=== PATIENT | female | born 1995 | race Two or more races ===

== ENCOUNTER 2018-11-27 06:26 | Inpatient (IN) ==
[~2018-11-27 06:26] MED LIST: ANCEF 1 GRAM IV PREMIX* 1 G/50 ML BAG IV ONE; LR 1000 ML IV 1,000 ML ONE
[2018-11-27] MEDS ORDERED: D5 1/2 NS 1000 ML 1,000 ML IV SCH (06:46)
[2018-11-27] MEDS ORDERED: ANCEF VIAL 1 GRAM IVP ONE (06:46)
[2018-11-27] MEDS ORDERED: LR 1000 ML IV 1,000 ML ONE ×2 (07:01→08:18)
[2018-11-27] MEDS ORDERED: D5 1/2 NS 1L W PITOCIN 20 UNITS/L 20 UNITS/1,000 ML BAG IV ONE (07:01)
[2018-11-27] MEDS ORDERED: DILAUDID INJ ONE (07:01)
[2018-11-27] MEDS ORDERED: XYLOCAINE 1 % (PLAIN) ONE (07:04)
[2018-11-27] MEDS ORDERED: BENADRYL INJ 50 MG VIAL IVP PRN (08:46)
[2018-11-27] MEDS ORDERED: PHENERGAN INJ 25 MG IM PRN (08:46)
[2018-11-27] MEDS ORDERED: REGLAN INJ 10 MG VIAL IVP PRN ×2 (08:46→08:56)
[2018-11-27] MEDS ORDERED: ZOFRAN INJ 4 MG VIAL IVP PRN ×2 (08:46→08:56)
[2018-11-27] MEDS ORDERED: ADACEL or BOOSTRIX TDaP VACCINE IM ONE (08:56)
[2018-11-27] MEDS ORDERED: NARCAN INJ IVP PRN (08:56)
[2018-11-27] MEDS ORDERED: TORADOL 30 MG VIAL IVP PRN (08:56)
[2018-11-27] MEDS ORDERED: PERCOCET TAB 5/325 MG PO PRN (08:56)
[2018-11-27] MEDS ORDERED: MYLICON TAB 80 MG CHEW PO PRN (08:56)
[2018-11-27] MEDS ORDERED: D5 1/2 NS 1000 ML 1,000 ML with PITOCIN 20 UNITS IV SCH ×2 (09:00)
[2018-11-27] MEDS ORDERED: REGLAN INJ 10 MG VIAL ONE ×2 (10:38→14:09)
[2018-11-27] MEDS ORDERED: EPHEDRINE SULFATE INJ ONE (14:09)
[2018-11-27] MEDS ORDERED: ZOFRAN INJ 4 MG VIAL ONE (14:09)
[2018-11-27] MEDS ORDERED: PITOCIN ONE (14:09)
[2018-11-27] MEDS ORDERED: NEO-SYNEPHRINE INJ ONE (14:09)
[2018-11-27] MEDS ORDERED: MARCAINE SPINAL ONE (14:09)
[2018-11-27] MEDS ORDERED: DIPRIVAN VIAL ONE (14:09)
[2018-11-27] MEDS: PRENATAL PLUS PO SCH (18:07)
[2018-11-27] MEDS: ZANTAC PO SCH ×2 (18:07→21:01)
[2018-11-27] MEDS: BENADRYL INJ 50 MG VIAL IVP PRN (21:02)
[2018-11-28 05:24] LABS: HEMOGLOBIN 7.1 g/dL (12.0-16.0)
[2018-11-28] MEDS ORDERED: PERCOCET TAB 5/325 MG PO PRN (07:55)
[2018-11-28] MEDS ORDERED: ADACEL or BOOSTRIX TDaP VACCINE IM ONE (09:06)
[2018-11-28] MEDS: MOTRIN TAB 800 MG PO PRN ×2 (09:17→21:02)
[2018-11-28] MEDS: BENADRYL INJ 50 MG VIAL IVP PRN (09:18)
[2018-11-28] MEDS: PRENATAL PLUS PO SCH (09:18)
[2018-11-28] MEDS: COLACE CAP 100 MG PO SCH ×2 (09:18→21:03)
[2018-11-28] MEDS: ZANTAC PO SCH ×2 (09:30→21:03)
[2018-11-28] MEDS: BACTROBAN CREAM TOP SCH ×2 (16:12→21:05)
[2018-11-28] MEDS ORDERED: FERROUS GLUCONATE PO SCH (17:00)
[2018-11-29] MEDS: BACTROBAN CREAM TOP SCH (05:55)
[2018-11-29 08:54] VITALS: BP 127/72
[2018-11-29] MEDS: PRENATAL PLUS PO SCH (09:15)
[2018-11-29] MEDS: COLACE CAP 100 MG PO SCH (09:15)
[2018-11-29] MEDS: ZANTAC PO SCH (09:16)
[2018-11-29] MEDS: MOTRIN TAB 800 MG PO PRN (09:17)
== END 2018-11-29 11:45 | disposition home or self-care (01) | DRG 788 ==
LOC: LD 06:26 → MED/SURG 12:56
PROVIDERS: ADMIT Specialist; ATTEND Specialist
DX: N85.8 Other specified noninflammatory disorders of uterus; O26.893 Other specified pregnancy related conditions, third trimester; Z37.0 Single live birth; Z3A.38 38 weeks gestation of pregnancy; O99.013 Anemia complicating pregnancy, third trimester; G43.809 Other migraine, not intractable, without status migrainosus; O41.03X0 Oligohydramnios, third trimester, not applicable or unspecified; O34.211 Maternal care for low transverse scar from previous cesarean delivery; Z23 Encounter for immunization; D50.8 Other iron deficiency anemias
CPT/HCPCS: 36415; 85014; 85018; 90715; A4216; A4222; S0197; J0690; J1170; J1200; J1885; J2310; J2370; J2405; J2590; J2704; J2765; J3490; J7120

== ENCOUNTER 2020-01-20 06:18 | Inpatient (IN) ==
[2020-01-20] MEDS ORDERED: LR 1000 ML IV 1,000 ML IV ONE (06:22)
[2020-01-20] MEDS ORDERED: ANCEF 1 GRAM IV PREMIX* 1 G/50 ML BAG IV ONE (06:22)
[2020-01-20] MEDS ORDERED: ANCEF VIAL 1 GRAM IVP ONE (06:32)
[2020-01-20] MEDS ORDERED: D5 1/2 NS 1000 ML 1,000 ML IV SCH (06:32)
[2020-01-20] MEDS ORDERED: DILAUDID INJ ONE (07:14)
[2020-01-20] MEDS ORDERED: D5 1/2 NS 1L W PITOCIN 20 UNITS/L 20 UNITS/1,000 ML BAG IV ONE (08:14)
[2020-01-20] MEDS ORDERED: BENADRYL INJ 50 MG VIAL IVP PRN (08:56)
[2020-01-20] MEDS ORDERED: REGLAN INJ 10 MG VIAL IVP PRN ×2 (08:56→09:19)
[2020-01-20] MEDS ORDERED: PHENERGAN INJ 25 MG IM PRN (08:56)
[2020-01-20] MEDS ORDERED: ZOFRAN INJ 4 MG VIAL IVP PRN ×2 (08:56→09:19)
[2020-01-20] MEDS ORDERED: DILAUDID INJ IVP PRN (08:56)
[2020-01-20] MEDS ORDERED: NARCAN INJ ONE (08:57)
[2020-01-20] MEDS: NARCAN INJ IVP PRN ×2 (09:04→21:05)
[2020-01-20] MEDS ORDERED: ADACEL or BOOSTRIX TDaP VACCINE IM ONE (09:19)
[2020-01-20] MEDS ORDERED: PERCOCET TAB 5/325 MG PO PRN (09:19)
[2020-01-20] MEDS ORDERED: D5 1/2 NS 1000 ML 1,000 ML with PITOCIN 20 UNITS IV SCH ×2 (09:19)
[2020-01-20] MEDS ORDERED: ZOFRAN INJ 4 MG VIAL ONE (10:00)
[2020-01-20] MEDS: BENADRYL INJ 50 MG VIAL IVP PRN ×2 (10:41→15:15)
[2020-01-20] MEDS: PRENATAL PLUS PO SCH (10:41)
[2020-01-20] MEDS ORDERED: PITOCIN ONE (14:40)
[2020-01-20] MEDS ORDERED: EPHEDRINE SULFATE INJ ONE (14:40)
[2020-01-20] MEDS ORDERED: VERSED ONE (14:40)
[2020-01-20] MEDS: TORADOL 30 MG VIAL IVP PRN (21:20)
[2020-01-20] MEDS: COLACE CAP 100 MG PO SCH (21:22)
[2020-01-20] MEDS: BACTROBAN TOPICAL OINT TOP SCH (21:23)
[2020-01-21] MEDS: NARCAN INJ IVP PRN (04:37)
[2020-01-21 05:12] LABS: HEMATOCRIT 26.4 % (36.0-47.0)
[2020-01-21] MEDS: BACTROBAN TOPICAL OINT TOP SCH ×3 (06:07→21:00)
[2020-01-21] MEDS: TORADOL 30 MG VIAL IVP PRN (06:08)
[2020-01-21] MEDS: COLACE CAP 100 MG PO SCH ×2 (08:22→20:23)
[2020-01-21] MEDS: PRENATAL PLUS PO SCH (08:23)
[2020-01-21] MEDS: MOTRIN TAB 800 MG PO PRN ×3 (08:29→23:45)
[2020-01-21] MEDS: FERROUS GLUCONATE PO SCH (17:44)
[2020-01-21] MEDS: PERCOCET TAB 5/325 MG PO PRN ×2 (17:48→21:53)
[2020-01-22] MEDS: MYLICON TAB 80 MG CHEW PO PRN ×2 (01:28→08:56)
[2020-01-22] MEDS: BACTROBAN TOPICAL OINT TOP SCH (05:55)
[2020-01-22] MEDS: PERCOCET TAB 5/325 MG PO PRN (05:56)
[2020-01-22] MEDS: FERROUS GLUCONATE PO SCH (06:01)
[2020-01-22] MEDS ORDERED: DEPO-PROVERA CONTRACEPTIVE INJ IM ONE ×2 (08:33→11:09)
[2020-01-22] MEDS: COLACE CAP 100 MG PO SCH (08:55)
[2020-01-22] MEDS: PRENATAL PLUS PO SCH (08:56)
[2020-01-22 10:12] VITALS: BP 124/79
== END 2020-01-22 11:40 | disposition home or self-care (01) | DRG 788 ==
LOC: LD 06:18 → MED/SURG 09:26
PROVIDERS: ADMIT Specialist; ATTEND Specialist
DX: Z23 Encounter for immunization; Z3A.39 39 weeks gestation of pregnancy; N85.8 Other specified noninflammatory disorders of uterus; Z11.59 Encounter for screening for other viral diseases; Z37.0 Single live birth; O99.89 Other specified diseases and conditions complicating pregnancy, childbirth and the puerperium; Z01.818 Encounter for other preprocedural examination; O34.211 Maternal care for low transverse scar from previous cesarean delivery; G43.809 Other migraine, not intractable, without status migrainosus
CPT/HCPCS: 36415; 80048; 81001; 85014; 85018; 85025; 85610; 85730; 86592; 86850; 86900; 86901; 87086; 90715; A4216; A4222; J0690; J1050; J1170; J1200; J1885; J2250; J2310; J2405; J2590; J3490; J7120; S0197

== ENCOUNTER 2021-09-14 06:33 | Inpatient (IN) ==
[2021-09-14] MEDS ORDERED: LR 1,000 ML IV 1,000 ML IV ONE ×2 (06:41→07:13)
[2021-09-14] MEDS ORDERED: ANCEF VIAL 1 GRAM ONE (06:41)
[2021-09-14] MEDS ORDERED: NS 100 ML IV 100 ML ONE (06:42)
[2021-09-14] MEDS ORDERED: D5 1/2 NS 1,000 ML 1,000 ML IV SCH (06:55)
[2021-09-14] MEDS ORDERED: ANCEF VIAL 1 GRAM IVP ONE (06:55)
[2021-09-14] MEDS ORDERED: DILAUDID INJ ONE (07:13)
[2021-09-14] MEDS ORDERED: PEPCID 20 MG VIAL ONE (07:14)
[2021-09-14] MEDS ORDERED: D5 1/2 NS 1,000 mL + PITOCIN 20 UNITS/L IV 20 UNITS/1,000 ML BAG IV ONE (08:24)
[2021-09-14] MEDS ORDERED: BENADRYL INJ 50 MG VIAL ONE (09:02)
[2021-09-14] MEDS ORDERED: TORADOL 30 MG VIAL IVP PRN (09:20)
[2021-09-14] MEDS ORDERED: ADACEL or BOOSTRIX TDaP VACCINE IM ONE (09:20)
[2021-09-14] MEDS ORDERED: REGLAN INJ 10 MG VIAL IVP PRN (09:20)
[2021-09-14] MEDS ORDERED: NARCAN INJ IVP PRN (09:20)
[2021-09-14] MEDS ORDERED: PERCOCET TAB 5/325 MG PO PRN (09:20)
[2021-09-14] MEDS ORDERED: MYLICON TAB 80 MG CHEW PO PRN (09:20)
[2021-09-14] MEDS ORDERED: ZOFRAN INJ 4 MG VIAL IVP PRN (09:20)
[2021-09-14] MEDS ORDERED: D5 1/2 NS 1,000 ML 1,000 ML with PITOCIN 20 UNITS IV SCH ×2 (10:00)
[2021-09-14] MEDS: BENADRYL INJ 50 MG VIAL IVP PRN ×2 (12:04→19:48)
[2021-09-15 05:14] LABS: HEMATOCRIT 25.6 % (36.0-47.0)
[2021-09-15 05:15] LABS: HEMOGLOBIN 9.1 g/dL (12.0-16.0)
[2021-09-15] MEDS ORDERED: PERCOCET TAB 5/325 MG ONE (06:47)
[2021-09-15] MEDS: PERCOCET TAB 5/325 MG PO PRN ×2 (07:01→22:06)
[2021-09-15] MEDS: FERROUS GLUCONATE PO SCH ×2 (08:02→17:05)
[2021-09-15] MEDS: COLACE CAP 100 MG PO SCH ×2 (09:55→20:34)
[2021-09-15] MEDS: PRENATAL PLUS PO SCH (09:55)
[2021-09-15] MEDS: MOTRIN TAB 800 MG PO PRN (11:50)
[2021-09-15] MEDS: BACTROBAN TOPICAL OINT TOP SCH ×2 (14:30→21:09)
[2021-09-16] MEDS: MOTRIN TAB 800 MG PO PRN (01:41)
[2021-09-16] MEDS: BACTROBAN TOPICAL OINT TOP SCH (05:19)
[2021-09-16] MEDS: FERROUS GLUCONATE PO SCH (06:30)
[2021-09-16] MEDS: COLACE CAP 100 MG PO SCH (08:13)
[2021-09-16] MEDS: PRENATAL PLUS PO SCH (08:13)
[2021-09-16 08:14] VITALS: BP 118/78
== END 2021-09-16 12:40 | disposition home or self-care (01) | DRG 785 ==
LOC: LD 06:33 → MED/SURG 10:04
PROVIDERS: ADMIT Specialist; ATTEND Specialist